=== PATIENT | male | born 1980 | race Two or more races ===

== ENCOUNTER 2021-10-24 18:45 | Emergency (ER) | payer OTHER, SELFPAY ==
[2021-10-24] MEDS: Acetaminophen 325 MG TABLET 650 MG PO (19:50)
[2021-10-24 19:51] VITALS: BP 124/82; PULSE 79; RESP 18; TEMP 36.6; O2SAT 98; BMI 23.0
--- NOTE | 2021-10-24 21:08 | ED.DENTAL ---
HPI - Dental/Oral General Chief complaint: Dental/Oral Stated complaint: facial swelling - dental pain Time Seen by Provider: 10/24/21 20:58 Source: patient Mode of arrival: ambulatory Limitations: no limitations History of Present Illness HPI Narrative: 41-year-old male here with reports of the swelling and pain to the left lower dental area for the last few days. Patient tells me this has been an intermittent problem over the last few months. He did complete a course of 2 weeks of antibiotics 1 month ago with improvement of symptoms. Patient tells me he was supposed to follow-up with his dentist but did not due to some issues with his son at home. Patient denies any fevers, chills, difficulty swallowing or difficulty breathing. Related Data Previous Rx's Medication Instructions Recorded clindamycin HCl 300 mg capsule 300 mg PO Q8H 7 Days #21 cap 10/24/21 ibuprofen 600 mg tablet 600 mg PO Q8H PRN #30 tab 10/24/21 oxycodone 5 mg tablet 5 mg PO Q8H PRN #5 tab 10/24/21 Allergies Allergy/AdvReac Type Severity Reaction Status Date / Time lactose [LACTOSE] Allergy Unknown UNKNOWN Verified 10/24/21 19:53 Review of Systems Review of Systems: Yes all other systems are reviewed and are negative Constitutional: Constitutional: Reports no additional constitutional complaints, Denies body ache(s), Denies chills, Denies fever(s), Denies headache(s) and Denies weakness Eyes: Eyes: Reports no additional eye complaints and Denies change in vision ENT: Reports system reviewed and no additional complaints, except as documented, Reports dental pain, Denies dizziness, Denies headache(s), Denies nasal congestion, Denies nasal discharge and Denies neck pain Cardiovascular: Cardiovascular: Reports no additional cardiovascular complaints, Denies chest pain, Denies leg edema and Denies dyspnea Respiratory: Respiratory: Reports no additional respiratory complaints, Denies cough and Denies dyspnea Gastrointestinal: Gastrointestinal: Reports no additional gastrointestinal complaints, Denies abdominal pain, Denies diarrhea, Denies nausea and Denies vomiting Genitourinary: Genitourinary: Denies urinary incontinence Musculoskeletal: Musculoskeletal: Reports no additional musculoskeletal complaints, Denies back pain, Denies arthralgias, Denies joint swelling, Denies neck pain, Denies numbness and Denies tingling Integumentary/Breasts: Skin/Breast: Reports system reviewed and no additional complaints, except as docu and Denies rash Neurologic: Reports system reviewed and no additional complaints, except as documented, Denies Abnormal speech present, Denies dizziness, Denies headache(s), Denies numbness, Denies tingling and Denies weakness PMFSH Past Medical History Attestation statement: The following information was validated with the patient. Source: old records reviewed and nursing notes reviewed Social History Social History Advance Directives: No Advance Directives Information Provided: No Physical Exam Vital Signs: Vital Signs: Last Vital Signs Temp 98 F 10/24/21 19:51 Pulse 79 10/24/21 19:51 Resp 18 10/24/21 19:51 BP 124/82 10/24/21 19:51 Pulse Ox 98 10/24/21 19:51 BMI result Body Mass Index 23.0 Const: General: cooperative, healthy appearing, comfortable and no acute distress Orientation/consciousness: patient oriented x3 Limitations: no limitations HEENT: Other: Mild left-sided facial swelling. There is some swelling to the left lower dental gum line and I am able to express some purulent drainage from the site with gentle massage. Head: Yes normal to inspection Ears: hearing grossly normal bilaterally and TM's normal bilaterally General nose exam: Normal external nose present Face and sinus: Yes normal facial exam Mouth: Normal oral and palatal mucosa present Teeth and gingiva: caries (Extensive-no trismus-swelling to the left lower gum line) Throat: Yes posterior oropharynx normal Eyes: General: appearance normal, both eyes and all related structures Pupils: Equal, round and reactive pupils present Neck: Neck: Yes normal visual inspection Chest: Chest palpation & inspection: normal inspection of the chest Resp: Effort & Inspection: normal respiratory effort Auscultation: clear to auscultation bilaterally Cardio: Rate: regular rate Rhythm: regular rhythm Peripheral pulses: Peripheral pulses 2+ throughout GI: Inspection: Yes normal to inspection Palpation (GI): Soft to palpation and nontender Auscultation: normal bowel sounds Back/Spine/Pelvis: Thoracic/Lumbar Spine: thoracic and lumbar spine normal to inspection Skin: General skin exam: no rashes or lesions noted Neuro: General: patient oriented x3, no focal motor deficits and normal sensation to monofilament Cranial nerves: Yes Equal, round and reactive pupils present Cognition (Neuro): normal cognition Speech: No Abnormal speech present Gait exam (Neuro): Normal gait present Motor exam (neuro): 5/5 motor strength present throughout Extrem: General: Yes normal to inspection Course Course Course Narrative: 41-year-old male here with acute on chronic left-sided dental pain and swelling. On exam the patient does have some slight swelling and some more focal swelling and tenderness around the left lower gumline with extensive dental caries. He does have an area on the outer aspect of the gum line where I am able to express some purulent drainage. Patient tells me he was able to drain quite a bit of fluid earlier today prior to arrival. Will place patient on a course of antibiotics, provide pain control for home and recommend he follow-up with dental clinic. No trismus or concern for Markos's angina. Reviewed worrisome signs and symptoms and when to return to the emergency department. Comfortable discharge home. MDM - Dental/Oral Medical Records Attestation: I reviewed the patient's medical records. Lab Data Attestation: I reviewed the patient's lab results. Discharge Plan Discharge Clinical Impression: Dental abscess Patient Disposition: Home, Self-Care Instructions: Dental Abscess (ED) Additional Instructions: Follow-up with a dentist Heat to your cheek with gentle massage Saltwater gargle Prescriptions: New clindamycin HCl 300 mg capsule 300 mg PO Q8H 7 Days Qty: 21 0RF oxycodone 5 mg tablet 5 mg PO Q8H PRN (Reason: pain) Qty: 5 0RF ibuprofen 600 mg tablet 600 mg PO Q8H PRN (Reason: pain) Qty: 30 0RF Referrals: Physician,None [Primary Care Provider] - Interventions: ED Discharge Assessment Last Done: 10/24/21 21:31 Discharge Date/Time: 10/24/21 21:32
[2021-10-24] MEDS: Clindamycin HCL 150 MG CAPSULE 450 MG PO (21:24)
[2021-10-24] MEDS: oxyCODONE HCl Immed Release 5 MG TABLET PO (21:25)
== END 2021-10-24 21:32 | disposition home or self-care (01) ==
PROVIDERS: Emergency Provider Emergency Medicine
DX: K04.7 Periapical abscess without sinus (principal); K02.9 Dental caries, unspecified
CPT/HCPCS: 99283